=== PATIENT | male | born 1970 | race Caucasian/White ===

== ENCOUNTER 2016-07-29 14:51 | Emergency (ER) | payer OTHER ==
[~2016-07-29] VITALS: Ht 182.8 cm; Wt 81.6 kg
[~2016-07-29 14:51] MED LIST: ATARAX25 MG PO; CYCLOBENZAPRINE10 MG PO; ELIQUIS5 M1 PO; FLEXERIL10 MG PO; HYDROCODONE BIT1 T11 PO; HYDROXYZINE10 MG PO; IBU800 MG PO; MOTRIN800 MG PO; NAPROSYN500 MG PO; PAXIL40 MG PO; PREDNICOT20 MG PO; PREDNISONE20 MG PO; SUBOXONE 4 MG-1 EACH SL; SUBOXONE 8 MG-1 EACH SL; SUBOXONE 8 MG-21 TA1 SL; TRAMADOL HCL50 MG PO; VICODIN 5/500 505 MG PO; VYVANSE70 MG; XANAX0.25 MG PO
[2016-07-29] MEDS ORDERED: TRAZODONE50 MG PO (15:06)
[2016-07-29] MEDS ORDERED: VISTARIL25 M2 PO (15:46)
== END 2016-07-29 16:16 | disposition home or self-care (01) ==
LOC: ED 14:51
DX: F41.9 Anxiety disorder, unspecified (principal); G47.00 Insomnia, unspecified; I25.2 Old myocardial infarction; Z79.899 Other long term (current) drug therapy

== ENCOUNTER 2016-10-18 16:13 | Emergency (ER) | payer OTHER ==
[~2016-10-18] VITALS: Wt 83.9 kg
--- NOTE | ~2016-10-18 | EKG ---
[place], [place] ELECTROCARDIOGRAM REPORT NAME: SHELBIE LUNA UNIT #: [id number] ROOM: DOCTOR: VIOLA BAKER MD BIRTHDATE: [birth year] DOS: 10/18/2016 TIME: 1710 hours. Normal sinus rhythm at 88 beats per minute. The tracing is normal. No previous tracing is available for comparison. VIOLA BAKER MD CM:EKGRPT:ELECTROCARDIOGRAM REPORT 1150 1400 VIOLA BAKER MD
[2016-10-18 17:15] LABS: BASO % 0.4 % (0.0-1.0); EOS # 0.2 10*3/uL (0.0-0.4); HEMATOCRIT 41.3 % (42.0-52.0); LYMPH # 2.1 10*3/uL (1.3-4.4); LYMPH % 30.7 % (27.0-41.0); MEAN CELL VOLUME 78.8 fl (80.0-94.0); MEAN CORPUSCULAR HGB 26.7 pg (27.0-31.0); MEAN CORPUSCULAR HGB CONC 33.9 g/dl (33.0-37.0); MEAN PLATELET VOLUME 10.1 fl (9.6-12.3); MONO # 0.8 10*3/uL (0.1-1.0); MONO % 11.9 % (3.0-9.0); NEUT # 3.7 10*3/uL (2.3-7.9); NEUT % 53.6 % (47.0-73.0); PLATELET COUNT AUTOMATED 197 10*3/uL (130-400); RED BLOOD COUNT 5.24 10*6/uL (4.50-5.90); RED CELL DISTRI WIDTH 13.6 % (0-14.5)
[2016-10-18 17:23] LABS: PROTHROMBIN TIME 10.6 SECONDS (9.0-12.4)
[2016-10-18 17:31] LABS: ALBUMIN 4.1 gm/dl (3.1-4.5); ALKALINE PHOSPHATASE 63 U/L (45-117); BILIRUBIN, TOTAL 0.3 mg/dl (0.2-1.0); BUN 9 mg/dl (7-24); CARBON DIOXIDE 30 mmol/L (21-32); CHLORIDE 103 mmol/L (98-107); CPK 217 U/L (39-308); EST GLOM FILT AFRICAN AMERICAN > 60 ml/min; GLUCOSE 99 mg/dL (65-99); LDH 200 U/L (87-241); MAGNESIUM 2.4 mg/dL (1.5-2.1); POTASSIUM 4.2 mmol/L (3.5-5.1); SGOT/AST 40 IU/L (3-35); SGPT/ALT 53 U/L (12-78); SODIUM 142 mmol/L (136-145); TOTAL PROTEIN 7.6 gm/dL (6.4-8.2)
[2016-10-18 17:32] LABS: CKMB 2.6 ng/ml (0.5-3.6)
[2016-10-18 17:33] LABS: TROPONIN I < 0.015 ng/ml (<0.045)
== END 2016-10-18 18:04 | disposition left against medical advice (07) ==
LOC: ED 16:13
PROVIDERS: Physician Assistant
DX: F41.9 Anxiety disorder, unspecified (principal); I25.2 Old myocardial infarction; F17.200 Nicotine dependence, unspecified, uncomplicated

== ENCOUNTER → 2016-10-18 | Outpatient (CLI) | payer OTHER ==
[~2016-10-18] MED LIST changes: +TRAZODONE50 MG PO; +VISTARIL25 M2 PO
[2016-10-18 08:28] LABS: HEMATOCRIT 40.2 % (42.0-52.0); HEMOGLOBIN 13.4 g/dl (14.0-18.0); MEAN CELL VOLUME 78.7 fl (80.0-94.0); MEAN CORPUSCULAR HGB 26.2 pg (27.0-31.0); MEAN CORPUSCULAR HGB CONC 33.3 g/dl (33.0-37.0); MEAN PLATELET VOLUME 9.9 fl (9.6-12.3); RED BLOOD COUNT 5.11 10*6/uL (4.50-5.90); RED CELL DISTRI WIDTH 13.8 % (0-14.5); WHITE BLOOD COUNT 7.1 10*3/uL (4.8-10.8)
[2016-10-18 08:49] LABS: ALBUMIN 4.1 gm/dl (3.1-4.5); ALKALINE PHOSPHATASE 61 U/L (45-117); BILIRUBIN, TOTAL 0.4 mg/dl (0.2-1.0); BUN 9 mg/dl (7-24); CARBON DIOXIDE 30 mmol/L (21-32); CHLORIDE 100 mmol/L (98-107); CHOLESTEROL 191 mg/dL (<200); EST GLOM FILT AFRICAN AMERICAN > 60 ml/min; GLUCOSE 96 mg/dL (65-99); HDL CHOLESTEROL 59 mg/dl (40-60); LDL CHOLESTEROL 114 mg/dL (9-159); POTASSIUM 3.6 mmol/L (3.5-5.1); SGOT/AST 30 IU/L (3-35); SGPT/ALT 46 U/L (12-78); SODIUM 140 mmol/L (136-145); TOTAL PROTEIN 7.7 gm/dL (6.4-8.2); TRIGLYCERIDES 90 mg/dl (<150); VLDL CHOLESTEROL 18 mg/dL (6-40)
[2016-10-20 15:08] LABS: PROTEIN S, FREE 99 % (57-157); PROTEIN S, TOTAL 132 % (60-150)
== END | disposition home or self-care (01) ==
LOC: LAB 07:58
PROVIDERS: Family Medicine
DX: I63.8 Other cerebral infarction (principal); I82.409 Acute embolism and thrombosis of unspecified deep veins of unspecified lower extremity; F32.9 Major depressive disorder, single episode, unspecified; I26.99 Other pulmonary embolism without acute cor pulmonale

== ENCOUNTER 2016-11-10 19:02 | Emergency (ER) | payer OTHER ==
[~2016-11-10] VITALS: Wt 83.9 kg
[2016-11-10] MEDS ORDERED: CELEXA10 MG PO (19:10)
[2016-11-10] MEDS ORDERED: NAPROSYN500 MG PO (19:16)
[2016-11-10] MEDS ORDERED: 'PARAFON FORTE500 M1 PO (19:16)
== END 2016-11-10 20:03 | disposition left against medical advice (07) ==
LOC: ED 19:02
DX: F17.200 Nicotine dependence, unspecified, uncomplicated (principal); M25.511 Pain in right shoulder; F11.10 Opioid abuse, uncomplicated; F14.10 Cocaine abuse, uncomplicated; F41.9 Anxiety disorder, unspecified

== ENCOUNTER 2017-01-12 19:37 | Emergency (ER) | payer OTHER ==
[~2017-01-12] VITALS: Wt 81.6 kg
[~2017-01-12 19:37] MED LIST changes: +'PARAFON FORTE500 M1 PO; +CELEXA10 MG PO
[2017-01-12] MEDS ORDERED: BUPRENORPHINE-N1 TAB SL (19:39)
[2017-01-12] MEDS ORDERED: PAROXETINE HCL40 MG PO (19:39)
[2017-01-12] MEDS ORDERED: TRAZADONE HYDR100 MG PO (19:39)
[2017-01-12] MEDS ORDERED: DIAZEPAM5 MG PO (19:39)
[2017-01-12] MEDS ORDERED: MEDROL DOSEPAK4 MG PO (19:46)
== END 2017-01-12 20:24 | disposition home or self-care (01) ==
LOC: ED 19:37
DX: L23.7 Allergic contact dermatitis due to plants, except food (principal); F17.200 Nicotine dependence, unspecified, uncomplicated

== ENCOUNTER 2017-03-22 10:04 | Emergency (ER) | payer OTHER ==
[~2017-03-22] VITALS: Ht 182.8 cm; Wt 81.6 kg
[~2017-03-22 10:04] MED LIST changes: +BUPRENORPHINE-N1 TAB SL; +DIAZEPAM5 MG PO; +MEDROL DOSEPAK4 MG PO; +PAROXETINE HCL40 MG PO; +TRAZADONE HYDR100 MG PO
[2017-03-22 10:30] LABS: BASO % 0.5 % (0.0-1.0); EOS % 0.5 % (1.0-4.0); HEMOGLOBIN 15.9 g/dl (14.0-18.0); LYMPH # 1.6 10*3/uL (1.3-4.4); LYMPH % 21.2 % (27.0-41.0); MEAN CELL VOLUME 80.6 fl (80.0-94.0); MEAN CORPUSCULAR HGB 26.2 pg (27.0-31.0); MEAN CORPUSCULAR HGB CONC 32.4 g/dl (33.0-37.0); MEAN PLATELET VOLUME 9.9 fl (9.6-12.3); MONO # 0.6 10*3/uL (0.1-1.0); MONO % 7.9 % (3.0-9.0); NEUT # 5.3 10*3/uL (2.3-7.9); NEUT % 69.6 % (47.0-73.0); PLATELET COUNT AUTOMATED 240 10*3/uL (130-400); RED BLOOD COUNT 6.08 10*6/uL (4.50-5.90); RED CELL DISTRI WIDTH 13.9 % (0-14.5); WHITE BLOOD COUNT 7.6 10*3/uL (4.8-10.8)
[2017-03-22 10:39] LABS: ACT PARTIAL THROMBO TIME 25.2 SECONDS (20.8-31.5); INTERNATIONAL NORM RATIO 1.1 (2.0-3.5)
[2017-03-22 10:48] LABS: ALBUMIN 4.5 gm/dl (3.1-4.5); ALKALINE PHOSPHATASE 72 U/L (45-117); BUN 6 mg/dl (7-24); CHLORIDE 105 mmol/L (98-107); CREATININE 0.99 mg/dL (0.70-1.30); MAGNESIUM 2.5 mg/dL (1.5-2.1); POTASSIUM 4.2 mmol/L (3.5-5.1); SGOT/AST 20 IU/L (3-35); SGPT/ALT 24 U/L (12-78); SODIUM 142 mmol/L (136-145)
[2017-03-22 10:51] LABS: TROPONIN I < 0.015 ng/ml (<0.045)
== END 2017-03-22 12:15 | disposition left against medical advice (07) ==
LOC: ED 10:04
PROVIDERS: Nurse Practitioner Family
DX: F10.129 Alcohol abuse with intoxication, unspecified (principal); R03.0 Elevated blood-pressure reading, without diagnosis of hypertension; F17.200 Nicotine dependence, unspecified, uncomplicated; Z79.899 Other long term (current) drug therapy

== ENCOUNTER → 2017-04-08 | Outpatient (CLI) | payer OTHER ==
[2017-04-08 09:54] LABS: HEMATOCRIT 44.2 % (42.0-52.0); HEMOGLOBIN 14.5 g/dl (14.0-18.0); MEAN CELL VOLUME 82.3 fl (80.0-94.0); MEAN CORPUSCULAR HGB CONC 32.8 g/dl (33.0-37.0); MEAN PLATELET VOLUME 10.6 fl (9.6-12.3); RED BLOOD COUNT 5.37 10*6/uL (4.50-5.90); RED CELL DISTRI WIDTH 13.6 % (0-14.5); WHITE BLOOD COUNT 7.2 10*3/uL (4.8-10.8)
[2017-04-08 10:18] LABS: ALBUMIN 4.1 gm/dl (3.1-4.5); BUN 12 mg/dl (7-24); CHLORIDE 101 mmol/L (98-107); CHOLESTEROL 203 mg/dL (<200); CREATININE 1.01 mg/dL (0.70-1.30); SGOT/AST 26 IU/L (3-35); SGPT/ALT 37 U/L (12-78); SODIUM 137 mmol/L (136-145); TOTAL PROTEIN 8.1 gm/dL (6.4-8.2); TRIGLYCERIDES 144 mg/dl (<150); VLDL CHOLESTEROL 29 mg/dL (6-40)
[2017-04-08 10:19] LABS: ALKALINE PHOSPHATASE 65 U/L (45-117); HDL CHOLESTEROL 60 mg/dl (40-60); LDL CHOLESTEROL 114 mg/dL (9-159)
== END | disposition home or self-care (01) ==
LOC: LAB 09:17
PROVIDERS: Family Medicine
DX: E78.00 Pure hypercholesterolemia, unspecified (principal); I25.10 Atherosclerotic heart disease of native coronary artery without angina pectoris; I63.9 Cerebral infarction, unspecified; R53.83 Other fatigue; R41.3 Other amnesia; E55.9 Vitamin D deficiency, unspecified

== ENCOUNTER 2017-07-29 13:24 | Emergency (ER) | payer OTHER ==
[~2017-07-29] VITALS: Ht 205.7 cm; Wt 83.9 kg
[2017-07-29 14:31] LABS: BILIRUBIN NEGATIVE (NEGATIVE); BLOOD NEGATIVE (NEGATIVE); CLARITY CLEAR (CLEAR); COLOR YELLOW (YELLOW); GLUCOSE NEGATIVE (NEGATIVE); KETONE NEGATIVE (NEGATIVE); LEUKO ESTERASE NEGATIVE (NEGATIVE); NITRITE NEGATIVE (NEGATIVE); SPECIFIC GRAVITY <= 1.005 (1.005-1.030); UROBILINOGEN 0.2 E.U./dl (0.2-1.0)
[2017-07-29 14:39] LABS: BACTERIA TRACE
[2017-07-29 14:40] LABS: RBC 0-2 rbc/hpf (0-2); WBC 0-2 wbc/hpf (0-5)
[2017-07-29] MEDS ORDERED: CYCLOBENZAPRINE10 MG PO ×2 (16:02→17:26)
[2017-07-29] MEDS ORDERED: NAPROSYN500 MG PO ×2 (16:02→17:26)
== END 2017-07-29 16:09 | disposition home or self-care (01) ==
LOC: ED 13:24
PROVIDERS: Nurse Practitioner Family
DX: S39.013A Strain of muscle, fascia and tendon of pelvis, initial encounter (principal); F10.10 Alcohol abuse, uncomplicated; Z79.899 Other long term (current) drug therapy; X58.XXXA Exposure to other specified factors, initial encounter; Y93.89 Activity, other specified; Y92.89 Other specified places as the place of occurrence of the external cause; Y99.8 Other external cause status

== ENCOUNTER → 2017-08-22 | Outpatient (CLI) | payer OTHER | END | disposition home or self-care (01) | LOC: CARD 10:22 | DX: I07.1 Rheumatic tricuspid insufficiency (principal); R06.09 Other forms of dyspnea ==

== ENCOUNTER 2017-10-12 18:08 | Inpatient (IN) | payer OTHER ==
[~2017-10-12] VITALS: Ht 182.8 cm; Wt 88.9 kg
--- NOTE | ~2017-10-12 | WRIGHTHP ---
[place], [place] PATIENT HISTORY AND PHYSICAL EXAM [id number] UN[facility] #: [id number] ROOM: 411 DOCTOR: MOLLY KAISER MD BIRTHDATE: [birth year] DOS: 10/12/2017 HISTORY OF PRESENT ILLNESS: The patient is a 47-year-old gentleman with a past medical history of: 1. Pulmonary embolism in the past. 2. History of generalized anxiety disorder and social anxiety. 3. History of coronary artery disease and OR. 4. History of hyper-coagulopathy. 5. History of deep vein thrombosis in the right upper extremity in the past. 6. History of cocaine, heroin, alcohol and nicotine abuse. The patient presented to the Emergency Department at [facility] with 2 hour complains of off and on left-sided chest pain without any radiation, but the patient felt somewhat nauseous. No diaphoresis. After admission, the patient has been symptom free and his cardiac enzymes have been normal. REVIEW OF SYSTEMS: LUNGS: No increasing shortness of breath. GASTROINTESTINAL: No nausea, vomiting, diarrhea or constipation. CARDIOVASCULAR: No chest pains anymore, but the patient had left-sided chest pain and some nausea at home. No palpitations. HOME MEDICATIONS: Eliquis, Paxil, trazodone, ____, morphine, which is naloxone. ALLERGIES: No known drug allergies. PHYSICAL EXAMINATION: GENERAL: Alert and oriented x 3, in no visible distress. HEENT AND NECK: Extraocular movements are intact. Sclerae are anicteric. Oral mucosa is moist and clean. No obvious facial weakness. Neck is supple without any lymphadenopathy. No thyromegaly. No JVD. No carotid arterial bruits. LUNGS: Clear to auscultation. No wheezing. No rhonchi. CARDIOVASCULAR SYSTEM: Heart rate is regular in rate and rhythm. S1 and S2 normally audible. No significant murmur or any other abnormal cardiac sounds. ABDOMEN: Soft, nontender. No obvious organomegaly. Bowel sounds are present. No obvious herniation. EXTREMITIES: Without significant cyanosis or edema. Warm to touch. CENTRAL NERVOUS SYSTEM: Alert and oriented x 3. Cranial nerves II-XII are intact. Speech is normal. The patient is able to move all extremities. Normal muscle strength. Deep tendon reflexes are equal on both sides. Plantars were downgoing. LABORATORY DATA: Cardiac enzymes 3 sets were normal. Urine drug screen was positive for benzodiazepines. PT, PTT baseline. Chest x-ray without any acute disease. Normal serum electrolytes. Blood sugar 123. No leukocytosis. Hemoglobin 13.5, normal platelets. [place], [place] PATIENT HISTORY AND PHYSICAL EXAM NAME: SHELBIE LUNA UNIT #: [id number] ROOM: 411 DOCTOR: MOLLY KAISER MD BIRTHDATE: [birth year] IMPRESSION: 1. The patient presenting with left-sided chest pains and has a previous history of coronary artery disease. Cardiac enzymes have been negative and Cardiology has been consulted for further management. When cleared by Cardiology, the patient can be discharged to home. 2. The patient with history of hyper-coagulopathy, remains on apixaban. The patient has previous history of deep venous thrombosis, pulmonary embolism and an acute myocardial infarction. 3. History of significant substance abuse including alcohol, cocaine, heroin and nicotine smoke dependence. The patient remains on Suboxone. 4. Severe generalized anxiety disorder. The patient to be continued on Xanax as needed and also continue his Paxil. 5. Chronic primary insomnia, treated and controlled with trazodone. ADDENDUM The patient with chest pains prior to coming to the hospital, was seen by skinning machine feeder, Dr. Ton Cortes and recommended a cardiac stress test. Cardiac enzymes were negative. The patient refused cardiac stress testing and would like to go home today. The patient is being discharged to home to follow up with Dr. Beto Bullock, his PCP within a week. MOLLY KAISER MD CM:HISPHYS:PATIENT HISTORY AND PHYSICAL EXAMINATION [id number] MOLLY KAISER MD 10/14/17 0210 interface
[2017-10-12 18:15] VITALS: BP 109/68
[2017-10-12 18:27] LABS: BASO # 0.1 10*3/uL (0.0-0.1); BASO % 0.7 % (0.0-1.0); EOS # 0.2 10*3/uL (0.0-0.4); EOS % 2.5 % (1.0-4.0); HEMATOCRIT 41.5 % (42.0-52.0); HEMOGLOBIN 13.5 g/dl (14.0-18.0); LYMPH # 2.5 10*3/uL (1.3-4.4); LYMPH % 27.3 % (27.0-41.0); MEAN CORPUSCULAR HGB CONC 32.5 g/dl (33.0-37.0); MEAN PLATELET VOLUME 10.1 fl (9.6-12.3); MONO # 1.1 10*3/uL (0.1-1.0); NEUT # 5.2 10*3/uL (2.3-7.9); NEUT % 57.1 % (47.0-73.0); PLATELET COUNT AUTOMATED 193 10*3/uL (130-400); RED BLOOD COUNT 5.19 10*6/uL (4.50-5.90); RED CELL DISTRI WIDTH 13.5 % (0-14.5); WHITE BLOOD COUNT 9.1 10*3/uL (4.8-10.8)
[2017-10-12 18:42] LABS: ACT PARTIAL THROMBO TIME 25.6 SECONDS (20.8-31.5)
[2017-10-12 18:44] LABS: ALBUMIN 3.7 gm/dl (3.1-4.5); ALKALINE PHOSPHATASE 65 U/L (45-117); BUN 9 mg/dl (7-24); CHLORIDE 102 mmol/L (98-107); POTASSIUM 3.5 mmol/L (3.5-5.1); SGOT/AST 72 IU/L (3-35); SGPT/ALT 77 U/L (12-78); SODIUM 138 mmol/L (136-145); TOTAL PROTEIN 7.4 gm/dL (6.4-8.2)
[2017-10-12 18:47] LABS: TROPONIN I < 0.015 ng/ml (<0.045)
[2017-10-12 19:16] VITALS: BP 104/69
[2017-10-12 20:30] VITALS: BP 90/62
[2017-10-12 20:34] VITALS: BP 82/55
[2017-10-12 20:55] VITALS: BP 101/62
[2017-10-12 21:40] VITALS: BP 108/72
[2017-10-12 23:31] LABS: URINE AMPHETAMINES < 1000 (1000ng/ml); URINE BARBITURATES < 200 (200ng/ml); URINE BENZODIAZEPINES > 200 (200ng/ml); URINE CANNABINOIDS (THC) < 50 (50ng/ml); URINE COCAINE < 300 (300ng/ml); URINE METHADONE < 300 (300ng/ml); URINE OPIATES < 300 (300ng/ml)
[2017-10-12 23:32] LABS: URINE PHENCYCLIDINE < 25 (25ng/ml)
[2017-10-13 01:01] VITALS: BP 104/62
[2017-10-13 08:00] VITALS: BP 90/50
[2017-10-13 12:00] VITALS: BP 90/50; BP 90/58
== END 2017-10-13 15:55 | disposition home or self-care (01) | DRG 313 ==
LOC: ED 18:08 → EDHOLD 20:47 → 4E 20:47
PROVIDERS: Internal Medicine; Physician Assistant
DX: R07.89 Other chest pain (principal); I25.10 Atherosclerotic heart disease of native coronary artery without angina pectoris; F10.10 Alcohol abuse, uncomplicated; F11.10 Opioid abuse, uncomplicated; F41.1 Generalized anxiety disorder; F14.10 Cocaine abuse, uncomplicated; Y90.9 Presence of alcohol in blood, level not specified; F17.200 Nicotine dependence, unspecified, uncomplicated; F51.01 Primary insomnia; Z86.73 Personal history of transient ischemic attack (TIA), and cerebral infarction without residual deficits; Z86.711 Personal history of pulmonary embolism; I25.2 Old myocardial infarction; Z86.718 Personal history of other venous thrombosis and embolism; Z79.899 Other long term (current) drug therapy

== ENCOUNTER 2017-12-14 14:51 | Emergency (ER) | payer OTHER ==
[~2017-12-14] VITALS: Wt 86.2 kg
[2017-12-14] MEDS ORDERED: NEURONTIN300 MG PO (14:57)
[2017-12-14 15:09] LABS: BASO % 0.5 % (0.0-1.0); EOS # 0.1 10*3/uL (0.0-0.4); EOS % 1.6 % (1.0-4.0); HEMOGLOBIN 14.3 g/dl (14.0-18.0); LYMPH % 22.9 % (27.0-41.0); MEAN CELL VOLUME 81.5 fl (80.0-94.0); MEAN CORPUSCULAR HGB 26.5 pg (27.0-31.0); MEAN CORPUSCULAR HGB CONC 32.5 g/dl (33.0-37.0); MEAN PLATELET VOLUME 10.7 fl (9.6-12.3); MONO # 0.9 10*3/uL (0.1-1.0); MONO % 10.6 % (3.0-9.0); NEUT # 5.6 10*3/uL (2.3-7.9); NEUT % 64.1 % (47.0-73.0); PLATELET COUNT AUTOMATED 203 10*3/uL (130-400); RED CELL DISTRI WIDTH 13.7 % (0-14.5); WHITE BLOOD COUNT 8.7 10*3/uL (4.8-10.8)
[2017-12-14 15:22] LABS: ACT PARTIAL THROMBO TIME 25.8 SECONDS (20.8-31.5)
[2017-12-14 15:45] LABS: ALBUMIN 4.3 gm/dl (3.1-4.5); ALKALINE PHOSPHATASE 61 U/L (45-117); BUN 14 mg/dl (7-24); CHLORIDE 100 mmol/L (98-107); CREATININE 1.09 mg/dL (0.70-1.30); POTASSIUM 3.7 mmol/L (3.5-5.1); SGOT/AST 16 IU/L (3-35); SGPT/ALT 24 U/L (12-78); SODIUM 138 mmol/L (136-145); TOTAL PROTEIN 7.8 gm/dL (6.4-8.2)
[2017-12-14 15:47] LABS: TROPONIN I < 0.015 ng/ml (<0.045)
[2017-12-14 16:10] LABS: BILIRUBIN NEGATIVE (NEGATIVE); BLOOD NEGATIVE (NEGATIVE); CLARITY CLEAR (CLEAR); COLOR YELLOW (YELLOW); GLUCOSE NEGATIVE (NEGATIVE); KETONE NEGATIVE (NEGATIVE); LEUKO ESTERASE NEGATIVE (NEGATIVE); NITRITE NEGATIVE (NEGATIVE); SPECIFIC GRAVITY 1.025 (1.005-1.030); UROBILINOGEN 0.2 E.U./dl (0.2-1.0)
[2017-12-14 16:19] LABS: URINE AMPHETAMINES < 1000 (1000ng/ml); URINE BARBITURATES < 200 (200ng/ml); URINE BENZODIAZEPINES > 200 (200ng/ml); URINE CANNABINOIDS (THC) < 50 (50ng/ml); URINE COCAINE < 300 (300ng/ml); URINE METHADONE < 300 (300ng/ml); URINE OPIATES < 300 (300ng/ml)
[2017-12-14 16:21] LABS: URINE PHENCYCLIDINE < 25 (25ng/ml)
== END 2017-12-14 16:47 | disposition home or self-care (01) ==
LOC: ED 14:51
PROVIDERS: Physician Assistant
DX: R07.89 Other chest pain (principal); G47.00 Insomnia, unspecified; Z79.899 Other long term (current) drug therapy

== ENCOUNTER → 2018-05-05 | Outpatient (CLI) | payer OTHER ==
[~2018-05-05] MED LIST changes: +NEURONTIN300 MG PO; +XANAX0.5 MG PO
[2018-05-05 14:56] LABS: HEMATOCRIT 45.2 % (42.0-52.0); HEMOGLOBIN 14.8 g/dl (14.0-18.0); MEAN CELL VOLUME 79.7 fl (80.0-94.0); MEAN CORPUSCULAR HGB 26.1 pg (27.0-31.0); MEAN CORPUSCULAR HGB CONC 32.7 g/dl (33.0-37.0); MEAN PLATELET VOLUME 10.2 fl (9.6-12.3); RED BLOOD COUNT 5.67 10*6/uL (4.50-5.90); RED CELL DISTRI WIDTH 13.7 % (0-14.5); WHITE BLOOD COUNT 7.5 10*3/uL (4.8-10.8)
[2018-05-05 15:29] LABS: ALBUMIN 3.9 gm/dl (3.1-4.5); ALKALINE PHOSPHATASE 65 U/L (45-117); BUN 14 mg/dl (7-24); CHLORIDE 105 mmol/L (98-107); CHOLESTEROL 223 mg/dL (<200); CPK 87 U/L (39-308); CREATININE 1.15 mg/dL (0.70-1.30); HDL CHOLESTEROL 46 mg/dl (40-60); LDL CHOLESTEROL 149 mg/dL (9-159); SGOT/AST 20 IU/L (3-35); SGPT/ALT 33 U/L (12-78); SODIUM 140 mmol/L (136-145); TOTAL PROTEIN 8.2 gm/dL (6.4-8.2); TRIGLYCERIDES 141 mg/dl (<150); VLDL CHOLESTEROL 28 mg/dL (6-40)
[2018-05-05 15:52] LABS: VITAMIN D, 25-HYDROXY 22.5 ng/mL (30-100)
[2018-05-06 08:10] LABS: RHEUMATOID ARTHRITIS FACTOR <10.0 IU/mL (0.0-13.9)
== END | disposition home or self-care (01) ==
LOC: LAB 14:29
PROVIDERS: Family Medicine
DX: I25.10 Atherosclerotic heart disease of native coronary artery without angina pectoris (principal); M79.10 Myalgia, unspecified site; I73.9 Peripheral vascular disease, unspecified; G47.00 Insomnia, unspecified; R20.2 Paresthesia of skin; M25.50 Pain in unspecified joint

== ENCOUNTER 2018-06-21 09:40 | Emergency (ER) | payer OTHER ==
[~2018-06-21] VITALS: Ht 182.8 cm; Wt 95.3 kg
[2018-06-21 10:02] LABS: BASO # 0.1 10*3/uL (0.0-0.1); BASO % 0.5 % (0.0-1.0); EOS # 0.3 10*3/uL (0.0-0.4); EOS % 2.3 % (1.0-4.0); HEMATOCRIT 41.7 % (42.0-52.0); HEMOGLOBIN 13.5 g/dl (14.0-18.0); LYMPH # 1.8 10*3/uL (1.3-4.4); LYMPH % 14.8 % (27.0-41.0); MEAN CORPUSCULAR HGB 26.2 pg (27.0-31.0); MEAN CORPUSCULAR HGB CONC 32.4 g/dl (33.0-37.0); MEAN PLATELET VOLUME 9.7 fl (9.6-12.3); MONO # 1.5 10*3/uL (0.1-1.0); MONO % 12.4 % (3.0-9.0); NEUT # 8.2 10*3/uL (2.3-7.9); NEUT % 68.8 % (47.0-73.0); NUCLEATED RED BLOOD CELL 0.2 % (0.0-0.0); PLATELET COUNT AUTOMATED 205 10*3/uL (130-400); RED BLOOD COUNT 5.15 10*6/uL (4.50-5.90); RED CELL DISTRI WIDTH 13.7 % (0-14.5); WHITE BLOOD COUNT 11.9 10*3/uL (4.8-10.8)
[2018-06-21 10:15] LABS: BILIRUBIN NEGATIVE (NEGATIVE); BLOOD NEGATIVE (NEGATIVE); CLARITY CLEAR (CLEAR); COLOR YELLOW (YELLOW); GLUCOSE NEGATIVE (NEGATIVE); KETONE NEGATIVE (NEGATIVE); LEUKO ESTERASE NEGATIVE (NEGATIVE); NITRITE NEGATIVE (NEGATIVE); SPECIFIC GRAVITY <= 1.005 (1.005-1.030); UROBILINOGEN 0.2 E.U./dl (0.2-1.0)
[2018-06-21 10:18] LABS: ALBUMIN 3.9 gm/dl (3.1-4.5); ALKALINE PHOSPHATASE 103 U/L (45-117); BUN 10 mg/dl (7-24); CHLORIDE 100 mmol/L (98-107); CREATININE 0.96 mg/dL (0.70-1.30); POTASSIUM 3.8 mmol/L (3.5-5.1); SGOT/AST 44 IU/L (3-35); SGPT/ALT 52 U/L (12-78); SODIUM 135 mmol/L (136-145); TOTAL PROTEIN 7.9 gm/dL (6.4-8.2)
[2018-06-21 10:19] LABS: ACETAMINOPHEN (TYLENOL) < 5.0 ug/ml (10-30); ETHYL ALCOHOL < 3.0 mg/dl (<3)
[2018-06-21 10:23] LABS: EPITHELIAL CELLS 0-2; URINE AMPHETAMINES < 1000 (1000ng/ml); URINE BARBITURATES < 200 (200ng/ml); URINE BENZODIAZEPINES > 200 (200ng/ml); URINE CANNABINOIDS (THC) < 50 (50ng/ml); URINE COCAINE < 300 (300ng/ml); URINE METHADONE < 300 (300ng/ml); URINE OPIATES < 300 (300ng/ml); WBC 0-2 wbc/hpf (0-5)
[2018-06-21 10:27] LABS: URINE PHENCYCLIDINE < 25 (25ng/ml)
[2018-06-21] MEDS ORDERED: XANAX0.5 MG PO (11:57)
== END 2018-06-21 12:21 | disposition home or self-care (01) ==
LOC: ED 09:40
PROVIDERS: Physician Assistant
DX: R44.0 Auditory hallucinations (principal); G47.00 Insomnia, unspecified; F41.9 Anxiety disorder, unspecified; I25.2 Old myocardial infarction; F17.200 Nicotine dependence, unspecified, uncomplicated; Z79.899 Other long term (current) drug therapy; Z86.73 Personal history of transient ischemic attack (TIA), and cerebral infarction without residual deficits

== ENCOUNTER → 2018-07-29 | Outpatient (CLI) | payer OTHER ==
[~2018-07-29] MED LIST changes: +AMBIEN10 M1 PO; -BUPRENORPHINE-N1 TAB SL; +DOXEPIN HCL100 MG PO; +PAXIL30 M2 PO; +SUBOXONE SL; +VYVANSE30 MG PO; +ZYPREXA10 M1 PO
[2018-07-29 16:04] LABS: URINE AMPHETAMINES < 1000 (1000ng/ml); URINE BARBITURATES < 200 (200ng/ml); URINE BENZODIAZEPINES < 200 (200ng/ml); URINE CANNABINOIDS (THC) < 50 (50ng/ml); URINE COCAINE < 300 (300ng/ml); URINE METHADONE < 300 (300ng/ml); URINE OPIATES < 300 (300ng/ml)
[2018-07-29 16:09] LABS: URINE PHENCYCLIDINE < 25 (25ng/ml)
== END | disposition home or self-care (01) ==
LOC: LAB 13:23
PROVIDERS: Internal Medicine
DX: F11.20 Opioid dependence, uncomplicated (principal)

== ENCOUNTER 2018-07-31 | Inpatient (IN) | payer OTHER ==
[2018-07-31] VITALS (13 sets, daily range): BP systolic 93–134; BP diastolic 62–91
[~2018-07-31] MED LIST changes: -AMBIEN10 M1 PO; -DOXEPIN HCL100 MG PO; -PAXIL30 M2 PO; -VYVANSE30 MG PO; -ZYPREXA10 M1 PO
--- NOTE | ~2018-07-31 | DS ---
[place], [place] DISCHARGE SUMMARY NAME: SHELBIE LUNA UNIT #: [id number] ROOM: 531 DOCTOR: SANDRA STYLES MD BIRTHDATE: [birth year] DOS: 08/02/2018 SUBJECTIVE: The patient is doing much better, had a shower. His right shoulder is not hurting as much. He is much more awake and alert and oriented. His speech is no longer garbled. OBJECTIVE: GENERAL: He is awake and alert and oriented. Answers questions appropriately. VITAL SIGNS: Blood pressure is 107/78, pulse of 100, respirations 20, temperature 98.6. LUNGS: Clear. HEART: Regular. ABDOMEN: Obese, soft, nontender. EXTREMITIES: Without any edema. ASSESSMENT AND PLAN: 1. Polypharmacy resulting in change in mental status, which is resolved. 2. History of hypercoagulable state with cerebrovascular accident, deep venous thrombosis or pulmonary embolism. Continuation of Eliquis. 3. History of opioid abuse, on Suboxone. The patient is 47 years old, was brought to the Emergency Room after having fallen at home and multiple empty drug bottles and the patient was quite somnolent initially and started waking up after admission slowly. He was continued on some of his home meds. Multiple medications were discontinued. The possibility is that he was placed on Ambien, which may have caused this change in mental status and possibility that he was sleepwalking. He did complain of diffuse aches and pains. After admission, x-rays, CT scans, etc., have all come back negative. For his shoulder pain, he was x-rayed and did not show any pathology. CT of the cervical spine and head was normal. The patient is stable and is not having any more new problems. Christa Balbuena did see him. The patient did not have an overdose of medications intentionally. Acute kidney injury was noted. The patient was given IV fluids and that seems to have corrected. The patient is stable and the plan is to discharge him to home today. Follow up with PCP as an outpatient. DISCHARGE MEDICATIONS: Suboxone 1 tablet twice a day 8 mg, gabapentin 300 q. 8, Xanax 0.5 daily p.r.n., Zyprexa 10 at bedtime, Paxil 30 daily, Eliquis 5 b.i.d. His medications Vyvanse, zolpidem and doxepin were all discontinued. [place], [place] DISCHARGE SUMMARY NAME: SHELBIE LUNA UNIT #: [id number] ROOM: 531 DOCTOR: SANDRA STYLES MD BIRTHDATE: [birth year] SANDRA STYLES MD CM:TOÑITO [id number] SANDRA STYLES MD 08/11/18 0804 interface
--- NOTE | ~2018-07-31 | WRIGHTHP ---
[place], [place] PATIENT HISTORY AND PHYSICAL EXAM NAME: SHELBIE LUNA UNIT #: [id number] ROOM: [place] [address] DOCTOR: SANDRA STYLES MD BIRTHDATE: [birth year] DOS: 07/31/2018 HISTORY OF PRESENT ILLNESS: The patient lives at home alone, was found at home this morning by EMS, confused and after a fall at multiple open drug bottles around, which were empty including Suboxone. The patient this morning feels okay, does not have any complaints. He is woken up and unable to answer questions appropriately. PAST MEDICAL HISTORY: Significant for: 1. History of PE in 2016. 2. History of cerebrovascular accident. 3. Hypercoagulable state. 4. Generalized anxiety disorder. 5. History of multiple street drug abuse. 6. History of deep venous thrombosis of the right upper extremity. 7. Noncompliance with poor insight to medical problems. 8. Chronic primary insomnia. MEDICATIONS: Medications that he is on are Xanax 0.5 t.i.d. We do not exactly know the list of meds that he is on. He is on Eliquis and Suboxone the only thing he can remember and also doxepin. SOCIAL HISTORY: He smokes few cigarettes a day. He does not usually drink, but drinks with friends and sometimes does drink too many. He states that he does not use any more street drugs. FAMILY HISTORY: He did not show where his father is. His mother . He has 6 siblings. PHYSICAL EXAMINATION: GENERAL: He is awake and alert and oriented. VITAL SIGNS: Blood pressure is 134/83, pulse of 109, respirations 13, temperature 97.9. LUNGS: Diminished breath sounds, clear. HEART: Regular. ABDOMEN: Obese, soft, nontender. EXTREMITIES: Without any edema. LABORATORY DATA: White blood cell count is normal at 10.5. Drug screen shows Suboxone. Comprehensive glucose 127, BUN 18, creatinine 1.44, sodium 138, potassium 4.0, chloride 104. Alcohol is less than 3. IMAGING: CT of the head was negative. CT of the cervical spine was negative. CT of the chest, abdomen and pelvis were all within normal limits. ASSESSMENT AND PLAN: 1. The patient with possibility of a drug overdose, not exactly sure what medications he took, so far the drug screens have been negative. 2. Acute kidney injury, on IV fluids, which will be continued and we will restart home medications if once we have the whole list. [place], [place] PATIENT HISTORY AND PHYSICAL EXAM NAME: SHELBIE LUNA UNIT #: [id number] ROOM: [place] [address] DOCTOR: SANDRA STYLES MD BIRTHDATE: [birth year] 3. History of pulmonary embolism with hypercoagulable state. Continue Eliquis. SANDRA STYLES MD CM:HISPHYS:PATIENT HISTORY AND PHYSICAL EXAMINATION 5 [phone] SANDRA STYLES MD 07/31/18 0950 interface
--- NOTE | ~2018-07-31 | EKG ---
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
--- NOTE | ~2018-07-31 | DS ---
[place], [place] DISCHARGE SUMMARY NAME: SHELBIE LUNA UNIT #: [id number] ROOM: 531 DOCTOR: SANDRA STYLES MD BIRTHDATE: [birth year] DOS: 08/02/2018 ADDENDUM DISCHARGE MEDICATIONS: Suboxone 1 tablet twice a day 8 mg, gabapentin 300 q. 8, Xanax 0.5 daily p.r.n., Zyprexa 10 at bedtime, Paxil 30 daily, Eliquis 5 b.i.d. His medications Vyvanse, zolpidem and doxepin were all discontinued. SANDRA STYLES MD CM:TOÑITO 1521 [id number] SANDRA STYLES MD 08/11/18 0817 CALIXTO [email or web address]
--- NOTE | ~2018-07-31 | PR ---
[place], [place] PROGRESS NOTE NAME: SHELBIE LUNA UNIT #: [id number] ROOM: 531 DOCTOR: SANDRA STYLES MD BIRTHDATE: [birth year] DOS: SUBJECTIVE: The patient is much better looking this morning. His speech is no longer garbled. His thought process is intact. He is unable to answer questions appropriately. OBJECTIVE: VITAL SIGNS: Graphic trend shows a pressure of 114/78, pulse of 88, respirations 14, temperature 97.5. LUNGS: Clear. HEART: Regular. ABDOMEN: Obese, soft. EXTREMITIES: Without any edema. ASSESSMENT AND PLAN: 1. Fall with possibly accidental intake of multiple medications. The patient did have a CAT scan of the head done in the Emergency Room, which did not show any new process. This morning complains of right shoulder pain. States that it hurts when he tries to lift it up. X-ray of the shoulder will be ordered. 2. History of opioid abuse, on Suboxone. He also received Ambien, which may have caused him to sleep walk and possibly fall down the steps. We will discontinue Ambien. 3. History of thromboembolic disorder with hypercoagulable state. Encouraged the patient to use the Eliquis regularly, he has not been using it recently. Apparently, did not get it filled since April, which I have started. 4. Adult failure to thrive. PT/OT has been consulted, but they have not seen the patient. I will ask Christa Balbuena to see the patient today. As he ambulates well, should be able to go home. SANDRA STYLES MD CM:PNTRANS [id number] SANDRA STYLES MD 08/02/18 0544 interface
--- NOTE | ~2018-07-31 | DS ---
[place], [place] DISCHARGE SUMMARY NAME: SHELBIE LUNA UNIT #: [id number] ROOM: 531 DOCTOR: SANDRA STYLES MD BIRTHDATE: [birth year] DOS: 08/02/2018 ADDENDUM DISCHARGE MEDICATIONS: Suboxone 1 tablet twice a day 8 mg, gabapentin 300 q. 8, Xanax 0.5 daily p.r.n., Zyprexa 10 at bedtime, Paxil 30 daily, Eliquis 5 b.i.d. His medications Vyvanse, zolpidem and doxepin were all discontinued. SANDRA STYLES MD CM:TOÑITO 1521 2318 SANDRA STYLES MD 08/11/18 0817 CALIXTO [email or web address]
[2018-07-31 05:50] LABS: BILIRUBIN NEGATIVE (NEGATIVE); BLOOD NEGATIVE (NEGATIVE); CLARITY CLEAR (CLEAR); COLOR YELLOW (YELLOW); GLUCOSE NEGATIVE (NEGATIVE); KETONE NEGATIVE (NEGATIVE); LEUKO ESTERASE NEGATIVE (NEGATIVE); NITRITE NEGATIVE (NEGATIVE); SPECIFIC GRAVITY 1.025 (1.005-1.030); UROBILINOGEN 0.2 E.U./dl (0.2-1.0)
[2018-07-31 05:59] LABS: URINE AMPHETAMINES < 1000 (1000ng/ml); URINE BARBITURATES < 200 (200ng/ml); URINE BENZODIAZEPINES < 200 (200ng/ml); URINE CANNABINOIDS (THC) < 50 (50ng/ml); URINE COCAINE < 300 (300ng/ml); URINE METHADONE < 300 (300ng/ml); URINE OPIATES < 300 (300ng/ml)
[2018-07-31 06:04] LABS: BASO % 0.4 % (0.0-1.0); EOS # 0.1 10*3/uL (0.0-0.4); EOS % 1.1 % (1.0-4.0); HEMATOCRIT 36.9 % (42.0-52.0); HEMOGLOBIN 12.2 g/dl (14.0-18.0); LYMPH # 0.8 10*3/uL (1.3-4.4); MEAN CELL VOLUME 80.9 fl (80.0-94.0); MEAN CORPUSCULAR HGB 26.8 pg (27.0-31.0); MEAN CORPUSCULAR HGB CONC 33.1 g/dl (33.0-37.0); MEAN PLATELET VOLUME 10.1 fl (9.6-12.3); MONO % 9.5 % (3.0-9.0); NEUT # 8.4 10*3/uL (2.3-7.9); NEUT % 80.3 % (47.0-73.0); PLATELET COUNT AUTOMATED 209 10*3/uL (130-400); RED BLOOD COUNT 4.56 10*6/uL (4.50-5.90); WHITE BLOOD COUNT 10.5 10*3/uL (4.8-10.8)
[2018-07-31 06:05] LABS: ALBUMIN 3.5 gm/dl (3.1-4.5); ALKALINE PHOSPHATASE 80 U/L (45-117); BUN 18 mg/dl (7-24); CHLORIDE 103 mmol/L (98-107); CREATININE 1.44 mg/dL (0.70-1.30); SGOT/AST 29 IU/L (3-35); SGPT/ALT 31 U/L (12-78); SODIUM 138 mmol/L (136-145); TOTAL PROTEIN 7.2 gm/dL (6.4-8.2)
[2018-07-31 06:27] LABS: URINE PHENCYCLIDINE < 25 (25ng/ml)
[2018-07-31 06:27] LABS: ACETAMINOPHEN (TYLENOL) < 5.0 ug/ml (10-30); ETHYL ALCOHOL < 3.0 mg/dl (<3)
[2018-07-31] MEDS ORDERED: XANAX0.5 MG PO (09:11)
[2018-07-31] MEDS ORDERED: DOXEPIN HCL100 MG PO ×2 (09:19→09:20)
[2018-07-31] MEDS ORDERED: ZYPREXA10 M1 PO (09:21)
[2018-07-31] MEDS ORDERED: PAXIL30 M2 PO (09:21)
[2018-07-31] MEDS ORDERED: VYVANSE30 MG PO (09:22)
[2018-07-31] MEDS ORDERED: AMBIEN10 M1 PO (09:22)
[2018-07-31] MEDS ORDERED: ELIQUIS5 M1 PO (14:26)
[2018-08-01] VITALS: BP 113/69
[2018-08-01 04:00] VITALS: BP 114/78
[2018-08-01 07:13] LABS: BASO % 0.4 % (0.0-1.0); EOS # 0.2 10*3/uL (0.0-0.4); EOS % 2.4 % (1.0-4.0); HEMATOCRIT 39.8 % (42.0-52.0); HEMOGLOBIN 12.5 g/dl (14.0-18.0); LYMPH # 1.3 10*3/uL (1.3-4.4); LYMPH % 17.1 % (27.0-41.0); MEAN CELL VOLUME 83.4 fl (80.0-94.0); MEAN CORPUSCULAR HGB 26.2 pg (27.0-31.0); MEAN CORPUSCULAR HGB CONC 31.4 g/dl (33.0-37.0); MEAN PLATELET VOLUME 10.3 fl (9.6-12.3); MONO % 13.6 % (3.0-9.0); PLATELET COUNT AUTOMATED 198 10*3/uL (130-400); RED BLOOD COUNT 4.77 10*6/uL (4.50-5.90); RED CELL DISTRI WIDTH 14.4 % (0-14.5); WHITE BLOOD COUNT 7.6 10*3/uL (4.8-10.8)
[2018-08-01 08:00] VITALS: BP 120/80
[2018-08-01 16:00] VITALS: BP 107/58
[2018-08-01 20:00] VITALS: BP 120/68
[2018-08-02 08:00] VITALS: BP 119/85
[2018-08-02 12:00] VITALS: BP 107/78
[2018-08-02 16:00] VITALS: BP 163/60
== END 2018-08-02 16:38 | disposition home or self-care (01) | DRG 682 ==
PROVIDERS: Emergency Medicine Emergency Medical Services; ADMIT Internal Medicine
DX: N17.9 Acute kidney failure, unspecified (principal); G92 Toxic encephalopathy; D68.59 Other primary thrombophilia; R62.7 Adult failure to thrive; M25.511 Pain in right shoulder; Z60.2 Problems related to living alone; R09.02 Hypoxemia; F41.1 Generalized anxiety disorder; F51.04 Psychophysiologic insomnia; F51.01 Primary insomnia; Z91.81 History of falling; Z86.73 Personal history of transient ischemic attack (TIA), and cerebral infarction without residual deficits; Z86.718 Personal history of other venous thrombosis and embolism; Z86.711 Personal history of pulmonary embolism; I25.2 Old myocardial infarction

== ENCOUNTER → 2019-06-29 | Outpatient (CLI) | payer OTHER ==
[~2019-06-29] MED LIST changes: +AMBIEN10 M1 PO; +DOXEPIN HCL100 MG PO; +PAXIL30 M2 PO; +VYVANSE30 MG PO; +ZYPREXA10 M1 PO
[2019-06-29 14:50] LABS: URINE AMPHETAMINES < 1000 (1000ng/ml); URINE BARBITURATES < 200 (200ng/ml); URINE BENZODIAZEPINES > 200 (200ng/ml); URINE CANNABINOIDS (THC) < 50 (50ng/ml); URINE COCAINE < 300 (300ng/ml); URINE METHADONE < 300 (300ng/ml); URINE OPIATES < 300 (300ng/ml)
[2019-06-29 14:51] LABS: URINE PHENCYCLIDINE < 25 (25ng/ml)
== END | disposition home or self-care (01) ==
LOC: LAB 09:53
PROVIDERS: Internal Medicine
DX: F11.20 Opioid dependence, uncomplicated (principal)

== ENCOUNTER 2019-09-22 09:51 | Emergency (ER) | payer OTHER ==
[~2019-09-22] VITALS: Ht 182.8 cm; Wt 99.8 kg
[2019-09-22 10:58] LABS: BASO % 0.5 % (0.0-1.0); EOS # 0.1 10*3/uL (0.0-0.4); EOS % 1.3 % (1.0-4.0); HEMATOCRIT 46.5 % (42.0-52.0); HEMOGLOBIN 14.7 g/dl (14.0-18.0); LYMPH # 1.4 10*3/uL (1.3-4.4); LYMPH % 17.1 % (27.0-41.0); MEAN CORPUSCULAR HGB 26.3 pg (27.0-31.0); MEAN CORPUSCULAR HGB CONC 31.6 g/dl (33.0-37.0); MEAN PLATELET VOLUME 10.1 fl (9.6-12.3); MONO # 0.6 10*3/uL (0.1-1.0); MONO % 7.9 % (3.0-9.0); NEUT # 5.7 10*3/uL (2.3-7.9); NEUT % 72.7 % (47.0-73.0); PLATELET COUNT AUTOMATED 218 10*3/uL (130-400); RED CELL DISTRI WIDTH 14.1 % (0-14.5); WHITE BLOOD COUNT 7.9 10*3/uL (4.8-10.8)
[2019-09-22 11:15] LABS: ACT PARTIAL THROMBO TIME 34.1 SECONDS (20.0-32.1)
[2019-09-22 11:16] LABS: ALBUMIN 4.2 gm/dl (3.1-4.5); ALKALINE PHOSPHATASE 85 U/L (45-117); BUN 6 mg/dl (7-24); CHLORIDE 101 mmol/L (98-107); CREATININE 1.08 mg/dL (0.70-1.30); LIPASE 79 U/L (73-393); POTASSIUM 3.9 mmol/L (3.5-5.1); SGOT/AST 49 IU/L (3-35); SGPT/ALT 32 U/L (12-78); SODIUM 136 mmol/L (136-145); TOTAL PROTEIN 8.1 gm/dL (6.4-8.2)
[2019-09-22 11:20] LABS: ACETAMINOPHEN (TYLENOL) < 5.0 ug/ml (10-30); ETHYL ALCOHOL < 3.0 mg/dl (<3); TROPONIN I < 0.015 ng/ml (<0.045)
[2019-09-22 11:26] LABS: URINE AMPHETAMINES < 1000 (1000ng/ml); URINE BARBITURATES < 200 (200ng/ml); URINE BENZODIAZEPINES < 200 (200ng/ml); URINE CANNABINOIDS (THC) < 50 (50ng/ml); URINE COCAINE < 300 (300ng/ml); URINE METHADONE < 300 (300ng/ml); URINE OPIATES < 300 (300ng/ml)
[2019-09-22 11:27] LABS: BILIRUBIN NEGATIVE (NEGATIVE); BLOOD NEGATIVE (NEGATIVE); CLARITY CLEAR (CLEAR); COLOR STRAW (YELLOW); EPITHELIAL CELLS 0-2; GLUCOSE NEGATIVE (NEGATIVE); KETONE NEGATIVE (NEGATIVE); LEUKO ESTERASE NEGATIVE (NEGATIVE); NITRITE NEGATIVE (NEGATIVE); PH 6.5 (5.0-9.0); UROBILINOGEN 0.2 E.U./dl (0.2-1.0)
[2019-09-22 11:28] LABS: URINE PHENCYCLIDINE < 25 (25ng/ml)
== END 2019-09-22 13:08 | disposition left against medical advice (07) ==
LOC: ED 09:51
PROVIDERS: Emergency Medicine
DX: F31.9 Bipolar disorder, unspecified (principal); R44.0 Auditory hallucinations; I25.2 Old myocardial infarction; F41.0 Panic disorder [episodic paroxysmal anxiety]; F17.200 Nicotine dependence, unspecified, uncomplicated; Z79.899 Other long term (current) drug therapy; Z86.73 Personal history of transient ischemic attack (TIA), and cerebral infarction without residual deficits; Z79.01 Long term (current) use of anticoagulants

== ENCOUNTER 2019-11-16 18:59 | Emergency (ER) | payer OTHER ==
[~2019-11-16] VITALS: Ht 182.8 cm; Wt 95.3 kg
== END 2019-11-16 20:46 | disposition home or self-care (01) ==
LOC: ED 18:59
DX: F41.9 Anxiety disorder, unspecified (principal); F19.90 Other psychoactive substance use, unspecified, uncomplicated; I25.2 Old myocardial infarction; F17.200 Nicotine dependence, unspecified, uncomplicated; Z86.73 Personal history of transient ischemic attack (TIA), and cerebral infarction without residual deficits; Z79.899 Other long term (current) drug therapy

== ENCOUNTER → 2019-12-14 | Outpatient (CLI) | payer OTHER ==
[2019-12-14 11:14] LABS: BASO % 0.4 % (0.0-1.0); EOS # 0.2 10*3/uL (0.0-0.4); EOS % 1.7 % (1.0-4.0); HEMATOCRIT 45.7 % (42.0-52.0); LYMPH # 1.6 10*3/uL (1.3-4.4); LYMPH % 16.3 % (27.0-41.0); MEAN CELL VOLUME 80.3 fl (80.0-94.0); MEAN CORPUSCULAR HGB 26.2 pg (27.0-31.0); MEAN CORPUSCULAR HGB CONC 32.6 g/dl (33.0-37.0); MEAN PLATELET VOLUME 10.3 fl (9.6-12.3); MONO # 0.9 10*3/uL (0.1-1.0); MONO % 9.4 % (3.0-9.0); NEUT # 6.9 10*3/uL (2.3-7.9); NEUT % 71.4 % (47.0-73.0); PLATELET COUNT AUTOMATED 230 10*3/uL (130-400); RED BLOOD COUNT 5.69 10*6/uL (4.50-5.90); RED CELL DISTRI WIDTH 13.6 % (0-14.5); WHITE BLOOD COUNT 9.6 10*3/uL (4.8-10.8)
[2019-12-14 11:43] LABS: ALBUMIN 3.9 gm/dl (3.1-4.5); ALKALINE PHOSPHATASE 78 U/L (45-117); BUN 9 mg/dl (7-24); CHLORIDE 103 mmol/L (98-107); CREATININE 1.04 mg/dL (0.70-1.30); POTASSIUM 4.1 mmol/L (3.5-5.1); SGOT/AST 17 IU/L (3-35); SGPT/ALT 26 U/L (12-78); SODIUM 137 mmol/L (136-145)
[2019-12-15 05:10] LABS: HEP B CORE AB, IGM Negative (Negative); HEPATITIS B SURFACE AG Negative (Negative); HEPATITIS C VIRUS ANTIBODY <0.1 s/co (0.0-0.9)
== END | disposition home or self-care (01) ==
LOC: LAB 10:35
PROVIDERS: Family Medicine
DX: F11.20 Opioid dependence, uncomplicated (principal)

== ENCOUNTER 2020-04-13 17:28 | Emergency (ER) | payer OTHER ==
[~2020-04-13] VITALS: Wt 90.7 kg
[2020-04-13] MEDS ORDERED: KLONOPIN0.5 MG PO (20:23)
== END 2020-04-13 20:40 | disposition home or self-care (01) ==
LOC: ED 17:28
DX: F40.01 Agoraphobia with panic disorder (principal); I25.2 Old myocardial infarction; Z86.73 Personal history of transient ischemic attack (TIA), and cerebral infarction without residual deficits

== ENCOUNTER 2020-05-11 15:27 | Emergency (ER) | payer OTHER ==
[~2020-05-11] VITALS: Wt 93.0 kg
[~2020-05-11 15:27] MED LIST changes: +KLONOPIN0.5 MG PO
[2020-05-11] MEDS ORDERED: XANAX0.5 MG PO (16:55)
== END 2020-05-11 17:19 | disposition home or self-care (01) ==
LOC: ED 15:27
DX: F41.9 Anxiety disorder, unspecified (principal); F40.01 Agoraphobia with panic disorder; I25.2 Old myocardial infarction; F17.200 Nicotine dependence, unspecified, uncomplicated; Z79.899 Other long term (current) drug therapy

== ENCOUNTER 2020-06-06 11:06 | Emergency (ER) | payer OTHER ==
[~2020-06-06] VITALS: Ht 182.8 cm; Wt 95.3 kg
== END 2020-06-06 14:14 | disposition left against medical advice (07) ==
LOC: ED 11:06
DX: F41.9 Anxiety disorder, unspecified (principal); Z53.21 Procedure and treatment not carried out due to patient leaving prior to being seen by health care provider

== ENCOUNTER 2020-06-08 10:12 | Emergency (ER) | payer OTHER ==
[~2020-06-08] VITALS: Ht 182.8 cm; Wt 97.5 kg
[2020-06-08 11:15] LABS: BASO % 0.3 % (0.0-1.0); EOS # 0.4 10*3/uL (0.0-0.4); EOS % 3.6 % (1.0-4.0); HEMATOCRIT 41.8 % (42.0-52.0); LYMPH # 2.4 10*3/uL (1.3-4.4); LYMPH % 20.6 % (27.0-41.0); MEAN CELL VOLUME 80.5 fl (80.0-94.0); MEAN CORPUSCULAR HGB 26.2 pg (27.0-31.0); MEAN CORPUSCULAR HGB CONC 32.5 g/dl (33.0-37.0); MEAN PLATELET VOLUME 10.4 fl (9.6-12.3); MONO # 1.3 10*3/uL (0.1-1.0); MONO % 11.2 % (3.0-9.0); NEUT # 7.5 10*3/uL (2.3-7.9); NEUT % 63.8 % (47.0-73.0); PLATELET COUNT AUTOMATED 223 10*3/uL (130-400); RED BLOOD COUNT 5.19 10*6/uL (4.50-5.90); RED CELL DISTRI WIDTH 13.7 % (0-14.5); WHITE BLOOD COUNT 11.7 10*3/uL (4.8-10.8)
[2020-06-08 11:30] LABS: ALBUMIN 3.8 gm/dl (3.1-4.5); ALKALINE PHOSPHATASE 98 U/L (45-117); BUN 10 mg/dl (7-24); CHLORIDE 106 mmol/L (98-107); CREATININE 0.96 mg/dL (0.70-1.30); POTASSIUM 3.7 mmol/L (3.5-5.1); SGOT/AST 36 IU/L (3-35); SGPT/ALT 44 U/L (12-78); SODIUM 141 mmol/L (136-145); TOTAL PROTEIN 7.9 gm/dL (6.4-8.2)
[2020-06-08 11:31] LABS: ACT PARTIAL THROMBO TIME 27.1 SECONDS (20.0-32.1); ETHYL ALCOHOL < 3.0 mg/dl (<3)
[2020-06-08 11:41] LABS: BILIRUBIN Negative (Negative); BLOOD Negative (Negative); CLARITY Clear (Clear); COLOR Yellow (Yellow); GLUCOSE Negative (Negative); KETONE Negative (Negative); LEUKO ESTERASE Negative (Negative); NITRITE Negative (Negative); UROBILINOGEN 0.2 E.U./dl (0.0-1.0)
[2020-06-08 11:49] LABS: URINE AMPHETAMINES < 1000 (1000ng/ml); URINE BARBITURATES < 200 (200ng/ml); URINE BENZODIAZEPINES > 200 (200ng/ml); URINE CANNABINOIDS (THC) < 50 (50ng/ml); URINE COCAINE < 300 (300ng/ml); URINE METHADONE < 300 (300ng/ml); URINE OPIATES < 300 (300ng/ml)
[2020-06-08 11:52] LABS: EPITHELIAL CELLS 0-2; URINE PHENCYCLIDINE < 25 (25ng/ml); WBC 0-2 wbc/hpf (0-5)
== END 2020-06-08 12:17 | disposition left against medical advice (07) ==
LOC: ED 10:12
PROVIDERS: Emergency Medicine
DX: F41.9 Anxiety disorder, unspecified (principal); F31.9 Bipolar disorder, unspecified; Z79.2 Long term (current) use of antibiotics; Z79.899 Other long term (current) drug therapy

== ENCOUNTER → 2020-06-14 | Outpatient (CLI) | payer OTHER ==
[2020-06-14 13:27] LABS: BASO % 0.4 % (0.0-1.0); EOS # 0.2 10*3/uL (0.0-0.4); EOS % 2.1 % (1.0-4.0); HEMATOCRIT 43.5 % (42.0-52.0); LYMPH % 18.8 % (27.0-41.0); MEAN CELL VOLUME 81.2 fl (80.0-94.0); MEAN CORPUSCULAR HGB 25.7 pg (27.0-31.0); MEAN CORPUSCULAR HGB CONC 31.7 g/dl (33.0-37.0); MEAN PLATELET VOLUME 10.6 fl (9.6-12.3); MONO # 1.2 10*3/uL (0.1-1.0); MONO % 10.8 % (3.0-9.0); NEUT # 7.3 10*3/uL (2.3-7.9); NEUT % 67.3 % (47.0-73.0); PLATELET COUNT AUTOMATED 272 10*3/uL (130-400); RED BLOOD COUNT 5.36 10*6/uL (4.50-5.90); RED CELL DISTRI WIDTH 14.1 % (0-14.5); WHITE BLOOD COUNT 10.8 10*3/uL (4.8-10.8)
[2020-06-14 14:21] LABS: ALKALINE PHOSPHATASE 87 U/L (45-117); BUN 12 mg/dl (7-24); CHLORIDE 106 mmol/L (98-107); CREATININE 0.85 mg/dL (0.70-1.30); POTASSIUM 3.9 mmol/L (3.5-5.1); SGOT/AST 35 IU/L (3-35); SGPT/ALT 43 U/L (12-78); SODIUM 140 mmol/L (136-145)
[2020-06-15 07:06] LABS: HEP B CORE AB, IGM Negative (Negative); HEPATITIS B SURFACE AG Negative (Negative); HEPATITIS C VIRUS ANTIBODY <0.1 s/co (0.0-0.9)
== END | disposition home or self-care (01) ==
LOC: LAB 12:53
PROVIDERS: ATTEND Nurse Practitioner Psychiatric/Mental Health
DX: F11.20 Opioid dependence, uncomplicated (principal); R53.83 Other fatigue; Z57.8 Occupational exposure to other risk factors

== ENCOUNTER 2020-08-16 12:35 | Emergency (ER) | payer OTHER ==
[~2020-08-16] VITALS: Wt 97.5 kg
== END 2020-08-16 14:21 | disposition home or self-care (01) ==
LOC: ED 12:35
DX: F41.9 Anxiety disorder, unspecified (principal)

== ENCOUNTER 2020-11-10 14:49 | Emergency (ER) | payer OTHER ==
[~2020-11-10] VITALS: Ht 182.8 cm; Wt 99.8 kg
== END 2020-11-10 16:53 | disposition home or self-care (01) ==
LOC: ED 14:49
DX: F41.9 Anxiety disorder, unspecified (principal); F17.200 Nicotine dependence, unspecified, uncomplicated; Z79.899 Other long term (current) drug therapy; Z98.890 Other specified postprocedural states

== ENCOUNTER 2020-12-28 10:04 | Emergency (ER) | payer OTHER ==
[~2020-12-28] VITALS: Wt 95.3 kg
[2020-12-28 11:07] LABS: BASO # 0.1 10*3/uL (0.0-0.1); BASO % 0.5 % (0.0-1.0); EOS # 0.1 10*3/uL (0.0-0.4); EOS % 0.7 % (1.0-4.0); HEMATOCRIT 47.8 % (42.0-52.0); LYMPH # 1.5 10*3/uL (1.3-4.4); LYMPH % 15.7 % (27.0-41.0); MEAN CELL VOLUME 77.5 fl (80.0-94.0); MEAN CORPUSCULAR HGB 25.1 pg (27.0-31.0); MEAN CORPUSCULAR HGB CONC 32.4 g/dl (33.0-37.0); MEAN PLATELET VOLUME 11.3 fl (9.6-12.3); MONO # 0.9 10*3/uL (0.1-1.0); MONO % 8.7 % (3.0-9.0); NEUT # 7.3 10*3/uL (2.3-7.9); NEUT % 73.9 % (47.0-73.0); PLATELET COUNT AUTOMATED 272 10*3/uL (130-400); RED BLOOD COUNT 6.17 10*6/uL (4.50-5.90); RED CELL DISTRI WIDTH 14.5 % (0-14.5); WHITE BLOOD COUNT 9.8 10*3/uL (4.8-10.8)
[2020-12-28 11:23] LABS: ALKALINE PHOSPHATASE 121 U/L (45-117); BUN 7 mg/dl (7-24); CHLORIDE 103 mmol/L (98-107); CREATININE 0.95 mg/dL (0.70-1.30); POTASSIUM 4.2 mmol/L (3.5-5.1); SGOT/AST 24 IU/L (3-35); SGPT/ALT 51 U/L (12-78); SODIUM 135 mmol/L (136-145); TOTAL PROTEIN 8.6 gm/dL (6.4-8.2)
[2020-12-28 11:24] LABS: ETHYL ALCOHOL < 3.0 mg/dl (<3)
[2020-12-28 11:48] LABS: URINE AMPHETAMINES > 1000 (1000ng/ml); URINE BARBITURATES < 200 (200ng/ml); URINE BENZODIAZEPINES < 200 (200ng/ml); URINE CANNABINOIDS (THC) < 50 (50ng/ml); URINE COCAINE < 300 (300ng/ml); URINE METHADONE < 300 (300ng/ml); URINE OPIATES < 300 (300ng/ml)
[2020-12-28 11:49] LABS: URINE PHENCYCLIDINE < 25 (25ng/ml)
== END 2020-12-28 12:47 | disposition home or self-care (01) ==
LOC: ED 10:04
PROVIDERS: Emergency Medicine
DX: F39 Unspecified mood [affective] disorder (principal); Z79.899 Other long term (current) drug therapy

== ENCOUNTER → 2022-12-27 | Outpatient (CLI) | payer OTHER | END | disposition home or self-care (01) | LOC: RAD 10:23 | PROVIDERS: ATTEND Family Medicine | DX: M47.816 Spondylosis without myelopathy or radiculopathy, lumbar region (principal) ==

== ENCOUNTER → 2023-04-11 | Outpatient (CLI) | payer OTHER ==
[2023-04-11 11:27] LABS: BASO % 0.5 % (0.0-1.0); EOS # 0.1 10*3/uL (0.0-0.4); EOS % 2.2 % (1.0-4.0); HEMATOCRIT 45.5 % (42.0-52.0); LYMPH # 1.8 10*3/uL (1.3-4.4); LYMPH % 27.6 % (27.0-41.0); MEAN CELL VOLUME 79.8 fl (80.0-94.0); MEAN CORPUSCULAR HGB 26.5 pg (27.0-31.0); MEAN CORPUSCULAR HGB CONC 33.2 g/dl (33.0-37.0); MEAN PLATELET VOLUME 10.3 fl (9.6-12.3); MONO # 0.9 10*3/uL (0.1-1.0); MONO % 13.8 % (3.0-9.0); NEUT # 3.6 10*3/uL (2.3-7.9); NEUT % 55.6 % (47.0-73.0); PLATELET COUNT AUTOMATED 237 10*3/uL (130-400); RED CELL DISTRI WIDTH 13.9 % (0-14.5); WHITE BLOOD COUNT 6.5 10*3/uL (4.8-10.8)
[2023-04-11 11:53] LABS: ALKALINE PHOSPHATASE 74 U/L (46-116); BUN 8 mg/dl (9-23); CHLORIDE 106 mmol/L (98-107); CHOLESTEROL 212 mg/dL (<200); LDL CHOLESTEROL 131 mg/dL (9-159); POTASSIUM 4.2 mmol/L (3.4-5.1); SGPT/ALT 15 U/L (10-49); TOTAL PROTEIN 7.6 gm/dL (6.0-8.0); TRIGLYCERIDES 221 mg/dl (<150)
== END | disposition home or self-care (01) ==
LOC: LAB 11:04
PROVIDERS: ATTEND Nurse Practitioner Primary Care
DX: F19.11 Other psychoactive substance abuse, in remission (principal); I21.9 Acute myocardial infarction, unspecified; I63.9 Cerebral infarction, unspecified; R53.83 Other fatigue

== ENCOUNTER 2024-01-07 18:29 | Emergency (ER) | payer OTHER ==
[~2024-01-07] VITALS: Wt 97.5 kg
[2024-01-07] MEDS ORDERED: DOCUSATE SODIUM 100 MG CAP PO ONE (19:00)
[2024-01-07] MEDS ORDERED: CARBAMIDE PEROXIDE OTIC 15 ML BOTTLE OT ONE (19:05)
[2024-01-07] MEDS ORDERED: DOCUSATE SODIUM 100 MG/10 ML UDC PO ONE (19:40)
== END 2024-01-07 19:17 | disposition home or self-care (01) ==
LOC: ED 18:29
DX: H61.22 Impacted cerumen, left ear (principal); I25.2 Old myocardial infarction; F41.9 Anxiety disorder, unspecified; F14.90 Cocaine use, unspecified, uncomplicated; F17.200 Nicotine dependence, unspecified, uncomplicated; Z98.890 Other specified postprocedural states

== ENCOUNTER 2024-03-21 13:40 | Emergency (ER) | payer OTHER ==
[~2024-03-21] VITALS: Ht 182.8 cm; Wt 91.6 kg
[2024-03-21] MEDS ORDERED: IOHEXOL 350 MG/ML 100 ML VIAL IV ONE (14:20)
[2024-03-21] MEDS ORDERED: SODIUM CHLORIDE 0.9% 100 ML BAG IV ONE (14:20)
[2024-03-21 14:32] LABS: BASO % 0.4 % (0.0-1.0); EOS # 0.1 10*3/uL (0.0-0.4); EOS % 1.6 % (1.0-4.0); HEMATOCRIT 48.2 % (42.0-52.0); LYMPH # 1.9 10*3/uL (1.3-4.4); LYMPH % 20.6 % (27.0-41.0); MEAN CELL VOLUME 80.2 fl (80.0-94.0); MEAN CORPUSCULAR HGB 25.5 pg (27.0-31.0); MEAN CORPUSCULAR HGB CONC 31.7 g/dl (33.0-37.0); MEAN PLATELET VOLUME 10.4 fl (9.6-12.3); MONO # 1.1 10*3/uL (0.1-1.0); MONO % 12.6 % (3.0-9.0); NEUT # 5.8 10*3/uL (2.3-7.9); NEUT % 64.5 % (47.0-73.0); PLATELET COUNT AUTOMATED 297 10*3/uL (130-400); RED BLOOD COUNT 6.01 10*6/uL (4.50-5.90); RED CELL DISTRI WIDTH 14.3 % (0-14.5)
[2024-03-21 14:48] LABS: ACT PARTIAL THROMBO TIME 26.8 SECONDS (20.0-32.1)
[2024-03-21 14:58] LABS: ALKALINE PHOSPHATASE 95 U/L (46-116); BUN 11 mg/dl (9-23); CHLORIDE 102 mmol/L (98-107); POTASSIUM 3.8 mmol/L (3.4-5.1); SGPT/ALT 27 U/L (5-49); TOTAL PROTEIN 8.2 gm/dL (6.0-8.0)
[2024-03-21] MEDS ORDERED: APIXABAN 5 MG TAB PO ONE (16:40)
[2024-03-21] MEDS ORDERED: Amoxicillin/Clavulanate Pota 875 MG TAB PO ONE (16:40)
[2024-03-21] MEDS ORDERED: ELIQUIS5 M1 PO (16:49)
[2024-03-21] MEDS ORDERED: AMOX-CLAV 875-1 EACH PO (16:49)
== END 2024-03-21 17:09 | disposition left against medical advice (07) ==
LOC: ED 13:40
PROVIDERS: Internal Medicine
DX: R00.0 Tachycardia, unspecified (principal); H66.92 Otitis media, unspecified, left ear; R42 Dizziness and giddiness; I25.2 Old myocardial infarction; F41.9 Anxiety disorder, unspecified; F17.200 Nicotine dependence, unspecified, uncomplicated; F14.90 Cocaine use, unspecified, uncomplicated; Z98.890 Other specified postprocedural states; Z53.29 Procedure and treatment not carried out because of patient's decision for other reasons

== ENCOUNTER → 2024-06-16 | Outpatient (CLI) | payer OTHER ==
[~2024-06-16] MED LIST changes: +AMOX-CLAV 875-1 EACH PO
[2024-06-16 10:38] LABS: HEMATOCRIT 47.4 % (42.0-52.0); MEAN CELL VOLUME 81.2 fl (80.0-94.0); MEAN CORPUSCULAR HGB 25.7 pg (27.0-31.0); MEAN CORPUSCULAR HGB CONC 31.6 g/dl (33.0-37.0); MEAN PLATELET VOLUME 10.3 fl (9.6-12.3); RED BLOOD COUNT 5.84 10*6/uL (4.50-5.90); RED CELL DISTRI WIDTH 13.6 % (0-14.5); WHITE BLOOD COUNT 6.7 10*3/uL (4.8-10.8)
[2024-06-16 11:20] LABS: ALKALINE PHOSPHATASE 80 U/L (46-116); BUN 6 mg/dl (9-23); CHLORIDE 98 mmol/L (98-107); CHOLESTEROL 201 mg/dL (<200); LDL CHOLESTEROL 112 mg/dL (9-159); POTASSIUM 4.2 mmol/L (3.4-5.1); SGPT/ALT 18 U/L (5-49); TOTAL PROTEIN 8.2 gm/dL (6.0-8.0); TRIGLYCERIDES 239 mg/dl (<150)
[2024-06-16 11:22] LABS: VITAMIN D, 25-HYDROXY 44.4 ng/mL (30-100)
== END | disposition home or self-care (01) ==
LOC: LAB 10:13
PROVIDERS: ATTEND Family Medicine
DX: Z12.5 Encounter for screening for malignant neoplasm of prostate (principal); E55.9 Vitamin D deficiency, unspecified; R53.83 Other fatigue; M54.50 Low back pain, unspecified; I25.10 Atherosclerotic heart disease of native coronary artery without angina pectoris; G47.00 Insomnia, unspecified

== ENCOUNTER 2025-04-16 12:04 | Emergency (ER) | payer OTHER ==
[~2025-04-16] VITALS: Ht 182.8 cm; Wt 86.2 kg
[2025-04-16 14:01] LABS: BILIRUBIN Negative (Negative); BLOOD Negative (Negative); CLARITY Clear (Clear); COLOR Yellow (Yellow); KETONE Negative (Negative); LEUKO ESTERASE Negative (Negative); NITRITE Negative (Negative); PH 6.5 (4.5-8.0); SPECIFIC GRAVITY 1.010 (1.001-1.030); UROBILINOGEN 0.2 E.U./dl (0.0-1.0)
[2025-04-16 14:33] LABS: WBC 0-2 wbc/hpf (0-5)
== END 2025-04-16 15:23 | disposition home or self-care (01) ==
LOC: ED 12:04
PROVIDERS: Nurse Practitioner Family
DX: G89.29 Other chronic pain (principal); R10.2 Pelvic and perineal pain; N50.811 Right testicular pain; I25.2 Old myocardial infarction; F17.200 Nicotine dependence, unspecified, uncomplicated; Z79.899 Other long term (current) drug therapy; Z98.890 Other specified postprocedural states

== ENCOUNTER → 2025-05-19 | Outpatient (CLI) | payer OTHER ==
[2025-05-19 13:39] LABS: MEAN CELL VOLUME 84.3 fl (80.0-94.0); MEAN CORPUSCULAR HGB 26.4 pg (27.0-31.0); MEAN PLATELET VOLUME 10.2 fl (9.6-12.3); NUCLEATED RED BLOOD CELL 0.0 % (0.0-0.0); NUCLEATED RED BLOOD CELL 0.0 10*3/uL (0.0-0.0); PLATELET COUNT AUTOMATED 240.0 10*3/uL (130-400); RED CELL DISTRI WIDTH 14.5 % (0-14.5)
[2025-05-19 14:27] LABS: BUN 18 mg/dl (9-23); LDL CHOLESTEROL 135 mg/dL (9-159); SGPT/ALT 37 U/L (5-49)
[2025-05-19 14:30] LABS: VITAMIN D, 25-HYDROXY 31.8 ng/mL (30-100)
== END | disposition home or self-care (01) ==
LOC: LAB 13:21
PROVIDERS: ATTEND Family Medicine
DX: E78.00 Pure hypercholesterolemia, unspecified (principal); E55.9 Vitamin D deficiency, unspecified; Z12.5 Encounter for screening for malignant neoplasm of prostate; Z79.899 Other long term (current) drug therapy

== ENCOUNTER → 2025-05-23 | Outpatient (CLI) | payer OTHER | END | disposition home or self-care (01) | LOC: LAB 14:57 | PROVIDERS: ATTEND Family Medicine | DX: M25.50 Pain in unspecified joint (principal); M54.50 Low back pain, unspecified; M79.10 Myalgia, unspecified site ==